=== PATIENT | female | born 2005 | race Caucasian/White ===

== ENCOUNTER 2023-02-19 12:10 | Emergency (ER) | payer MEDICAID | END 2023-02-19 14:55 | disposition home or self-care (01) | LOC: FB.ED 12:10 | DX: R07.89 Other chest pain (principal); I10 Essential (primary) hypertension; Z88.0 Allergy status to penicillin | CPT/HCPCS: 36415; 71045; 86140; 99285 ==

== ENCOUNTER 2023-02-20 21:37 | Emergency (ER) | payer MEDICAID ==
[2023-02-20] MEDS ORDERED: ALPRAZolam 0.5 MG Tab PO ONE (21:38)
[2023-02-20] MEDS: LORazepam 2 MG/ML SDV ONE (21:44)
[2023-02-20] MEDS: LORazepam 2 MG/ML SDV IM ONE (21:44)
[2023-02-20] MEDS ORDERED: LORazepam 2 MG/ML SDV IV ONE (21:45)
[2023-02-20 22:31] VITALS: BP 155/71; PULSE 87
== END 2023-02-20 22:52 | disposition home or self-care (01) ==
LOC: FB.ED 21:37
DX: R07.89 Other chest pain (principal); I10 Essential (primary) hypertension; Z79.899 Other long term (current) drug therapy; Z88.0 Allergy status to penicillin
CPT/HCPCS: 36415; 85379; 96372; 99283; 99284; A9270-GY; J2060

== ENCOUNTER 2023-04-08 02:24 | Emergency (ER) | payer MEDICAID ==
[2023-04-08] MEDS ORDERED: Ketorolac 30 MG/ML SDV IM ONE (02:48)
[2023-04-08] MEDS ORDERED: hydrOXYzine HCl 50 MG/ML SDV IM ONE (02:48)
== END 2023-04-08 03:20 | disposition home or self-care (01) ==
LOC: FB.ED 02:24
DX: M54.50 Low back pain, unspecified (principal); I10 Essential (primary) hypertension; Z79.899 Other long term (current) drug therapy; Z88.0 Allergy status to penicillin
CPT/HCPCS: 96372; 99283; J1885; J3410

== ENCOUNTER 2023-05-14 21:16 | Emergency (ER) | payer MEDICAID ==
[2023-05-14 21:33] LABS: HEMATOCRIT 38.2 % (34.2-48.2); MEAN CORPUSCULAR HEMOGLOBIN 28.5 pg (23.9-33.9); MEAN CORPUSCULAR HGB CONC 34.1 g/dL (31.9-34.8); MEAN CORPUSCULAR VOLUME 83.6 fL (76.7-100.5); MEAN PLATELET VOLUME 7.9 fL (7.1-12.4); PLATELET COUNT,PLT 364 x10(3)uL (151-488); RED BLOOD CELL COUNT 4.57 x10(6)uL (3.60-5.20); RED CELL DISTRIBUTION WIDTH 14.2 % (12.3-16.5); WHITE BLOOD CELL COUNT,WBC 6.1 x10-3/uL (3.0-10.3)
[2023-05-14 21:36] LABS: BLOOD UREA NITROGEN,BUN 15 mg/dL (7-18); BUN/CREATININE RATIO 18.8 (9-20); CALCIUM 8.9 mg/dL (8.2-10.1); CARBON DIOXIDE,CO2 26 mmol/L (21-32); CHLORIDE,CL 102 mmol/L (100-110); CREATININE 0.8 mg/dL (0.55-1.02); ESTIMATED GFR 109 mL/min (>60); GLUCOSE RANDOM 140 mg/dL (80-116); POTASSIUM,K 3.6 mmol/L (3.5-5.3); SODIUM,NA 139 mmol/L (135-145)
[2023-05-14 21:42] LABS: A/G RATIO 1.1; ALANINE AMINOTRANSFERASE,ALT 67 U/L (12-36); ALBUMIN 3.8 g/dL (3.2-4.5); ALKALINE PHOSPHATASE 98 IU/L (56-112); ASPARTATE AMNIOTRANSFERASE,AST 33 IU/L (5-25); BILIRUBIN TOTAL 0.5 mg/dL (0.1-1.2); PROTEIN TOTAL,TP 7.2 g/dL (6.0-8.0)
[2023-05-14] MEDS: Acetaminophen/oxyCODONE 325-5 MG Tab PO STA (21:43)
[2023-05-14] MEDS: Ketorolac 30 MG/ML SDV IVPUSH ONE (21:43)
[2023-05-14] MEDS: Sodium Chloride 0.9% 10 ML Syringe FLUSH PRN (21:44)
[2023-05-14 21:52] LABS: BAND PERCENT MAN 1 % (0-6); LYMPHOCYTES PERCENT MAN 45 % (13-37); SEG NEUTROPHILS PERCENT MAN 46 % (46-82)
[2023-05-14 21:53] LABS: INR 0.96 (1.00-1.24); MONOCYTES PERCENT MAN 8 % (4-12); PTT,PARTIAL THROMBOPLSTIN TIME 27.5 SECONDS (24.4-33.2)
== END 2023-05-14 23:00 | disposition home or self-care (01) ==
LOC: FB.ED 21:16
DX: S09.90XA Unspecified injury of head, initial encounter (principal); R55 Syncope and collapse; F44.4 Conversion disorder with motor symptom or deficit; I10 Essential (primary) hypertension; Z88.0 Allergy status to penicillin; W22.8XXA Striking against or struck by other objects, initial encounter
CPT/HCPCS: 36415; 70450; 80053; 85025; 85379; 85610; 85730; 93005; 96374; 99284; A9270; J1885; J3490

== ENCOUNTER 2023-06-15 23:29 | Emergency (ER) | payer MEDICAID ==
[2023-06-16] MEDS: hydrOXYzine HCl 50 MG/ML SDV IM ONE (00:21)
[2023-06-16] MEDS: hydrOXYzine HCl 50 MG/ML SDV ONE (00:40)
== END 2023-06-16 00:51 | disposition home or self-care (01) ==
LOC: FB.ED 23:29
DX: F41.9 Anxiety disorder, unspecified (principal); R07.89 Other chest pain; E66.9 Obesity, unspecified; I10 Essential (primary) hypertension; Z88.0 Allergy status to penicillin; Z79.899 Other long term (current) drug therapy
CPT/HCPCS: 96372; 99284; J3410; 99283

== ENCOUNTER 2023-12-07 12:54 | Emergency (ER) | payer MEDICAID ==
[2023-12-07 13:44] LABS: BLOOD UREA NITROGEN,BUN 11 mg/dL (7-18); CALCIUM 9.1 mg/dL (8.2-10.1); CARBON DIOXIDE,CO2 25 mmol/L (21-32); CHLORIDE,CL 104 mmol/L (100-110); CREATININE 1.1 mg/dL (0.55-1.02); EST CRCL DRUG DOSING (CG) 82.98 mL/min; ESTIMATED GFR 74 mL/min (>60); GLUCOSE RANDOM 97 mg/dL (80-116); POTASSIUM,K 3.8 mmol/L (3.5-5.3); SODIUM,NA 140 mmol/L (135-145)
[2023-12-07 13:47] LABS: BASOPHILS ABSOLUTE AUTO 0.1 x10-3/uL (0.0-0.1); BASOPHILS PERCENT AUTO 1.4 % (0.2-1.5); EOSINOPHILS ABSOLUTE AUTO 0.1 x10-3/uL (0.0-0.8); EOSINOPHILS PERCENT AUTO 1.5 % (0.6-8.1); HEMATOCRIT 40.7 % (34.2-48.2); HEMOGLOBIN 13.5 g/dL (11.4-15.5); LYMPHOCYTES ABSOLUTE AUTO 2.4 x10-3/uL (1.0-4.4); LYMPHOCYTES PERCENT AUTO 25.1 % (18.4-52.1); MEAN CORPUSCULAR HEMOGLOBIN 27.3 pg (23.9-33.9); MEAN CORPUSCULAR HGB CONC 33.2 g/dL (31.9-34.8); MEAN CORPUSCULAR VOLUME 82.1 fL (76.7-100.5); MEAN PLATELET VOLUME 8.4 fL (7.1-12.4); MONOCYTES ABSOLUTE AUTO 0.7 x10-3/uL (0.3-1.0); MONOCYTES PERCENT AUTO 7.2 % (4.4-15.7); NEUTROPHILS ABSOLUTE AUTO 6.3 x10-3/uL (1.5-6.3); NEUTROPHILS PERCENT AUTO 64.8 % (30.8-76.2); PLATELET COUNT,PLT 493 x10(3)uL (151-488); RED BLOOD CELL COUNT 4.96 x10(6)uL (3.60-5.20); RED CELL DISTRIBUTION WIDTH 15.1 % (12.3-16.5); WHITE BLOOD CELL COUNT,WBC 9.7 x10-3/uL (3.0-10.3)
[2023-12-07 13:58] LABS: A/G RATIO 1.1; ALANINE AMINOTRANSFERASE,ALT 91 U/L (12-36); ALBUMIN 3.8 g/dL (3.2-4.5); ALKALINE PHOSPHATASE 104 IU/L (56-112); ASPARTATE AMNIOTRANSFERASE,AST 38 IU/L (5-25); BILIRUBIN TOTAL 0.5 mg/dL (0.1-1.2); PROTEIN TOTAL,TP 7.3 g/dL (6.0-8.0)
[2023-12-07 14:02] LABS: TSH ULTRASENSITIVE 3.21 IU/mL (0.52-4.13)
[2023-12-07 14:07] LABS: ETHANOL BLOOD MEDICAL < 0.03 % (<0.03)
[2023-12-07 14:11] LABS: ACETAMINOPHEN < 2 ug/mL (<2)
[2023-12-07 14:12] LABS: SALICYLATE < 2.8 mg/dL (<2.8)
[2023-12-07 14:15] LABS: AMPHETAMINES SCREEN, URINE NEGATIVE (NEGATIVE); BARBITURATE SCREEN,URINE NEGATIVE (NEGATIVE); BENZODIAZEPINES SCREEN,URINE NEGATIVE (NEGATIVE); BUPRENORPHINE SCREEN,URINE NEGATIVE (NEGATIVE); METHADONE SCREEN, URINE NEGATIVE (NEGATIVE); METHAMPHETAMINE SCREEN, URINE NEGATIVE (NEGATIVE); OXYCODONE SCREEN,URINE NEGATIVE (NEGATIVE); THC SCREEN,URINE NEGATIVE (NEGATIVE)
== END 2023-12-07 15:00 | disposition home or self-care (01) ==
LOC: FB.ED 12:54
DX: F32.A Depression, unspecified (principal); F41.9 Anxiety disorder, unspecified; I10 Essential (primary) hypertension; Z88.8 Allergy status to other drugs, medicaments and biological substances; Z88.0 Allergy status to penicillin; Z79.899 Other long term (current) drug therapy
CPT/HCPCS: 36415; 80053; 80143; 80179; 80307; 81025; 84443; 85025; 99284

== ENCOUNTER 2024-02-02 19:42 | Emergency (ER) | payer OTHER, MEDICAID | END 2024-02-02 21:08 | disposition home or self-care (01) | LOC: FB.ED 19:42 | DX: S16.1XXA Strain of muscle, fascia and tendon at neck level, initial encounter (principal); S00.93XA Contusion of unspecified part of head, initial encounter; S20.219A Contusion of unspecified front wall of thorax, initial encounter; I10 Essential (primary) hypertension; E66.9 Obesity, unspecified; Z88.0 Allergy status to penicillin; Z88.8 Allergy status to other drugs, medicaments and biological substances; Z79.899 Other long term (current) drug therapy; V89.2XXA Person injured in unspecified motor-vehicle accident, traffic, initial encounter | CPT/HCPCS: 70450; 71045; 72125; 93005; 99285 ==

== ENCOUNTER 2024-07-06 21:19 | Emergency (ER) | payer MEDICAID ==
[2024-07-06] MEDS ORDERED: Sodium Chloride 0.9% 10 ML Syringe FLUSH PRN (21:31)
[2024-07-06] MEDS ORDERED: Ondansetron 4 MG/2 ML SDV IVPUSH ONE (21:31)
[2024-07-06 21:52] LABS: BASOPHILS PERCENT AUTO 0.4 % (0.2-1.5); EOSINOPHILS PERCENT AUTO 0.2 % (0.6-8.1); HEMATOCRIT 40.3 % (34.2-48.2); HEMOGLOBIN 13.9 g/dL (11.4-15.5); LYMPHOCYTES ABSOLUTE AUTO 0.8 x10-3/uL (1.0-4.4); LYMPHOCYTES PERCENT AUTO 7.9 % (18.4-52.1); MEAN CORPUSCULAR HEMOGLOBIN 27.6 pg (23.9-33.9); MEAN CORPUSCULAR HGB CONC 34.4 g/dL (31.9-34.8); MEAN CORPUSCULAR VOLUME 80.1 fL (76.7-100.5); MEAN PLATELET VOLUME 8.2 fL (7.1-12.4); MONOCYTES ABSOLUTE AUTO 0.8 x10-3/uL (0.3-1.0); MONOCYTES PERCENT AUTO 7.6 % (4.4-15.7); NEUTROPHILS ABSOLUTE AUTO 8.6 x10-3/uL (1.5-6.3); NEUTROPHILS PERCENT AUTO 83.9 % (30.8-76.2); PLATELET COUNT,PLT 442 x10(3)uL (151-488); RED BLOOD CELL COUNT 5.03 x10(6)uL (3.60-5.20); RED CELL DISTRIBUTION WIDTH 15.3 % (12.3-16.5); WHITE BLOOD CELL COUNT,WBC 10.2 x10-3/uL (3.0-10.3)
[2024-07-06] MEDS: Ketorolac 30 MG/ML SDV IVPUSH ONE (21:52)
[2024-07-06] MEDS: Sodium Chloride 0.9% 1,000 ML IV SCH (21:52)
[2024-07-06] MEDS: Pantoprazole 40 MG Vial IVPUSH ONE (21:52)
[2024-07-06] MEDS: Metoclopramide 10 MG/2 ML SDV IVPUSH ONE (21:54)
[2024-07-06 21:55] LABS: BLOOD UREA NITROGEN,BUN 12 mg/dL (7-18); CALCIUM 9.2 mg/dL (8.6-10.2); CARBON DIOXIDE,CO2 22 mmol/L (21-32); CHLORIDE,CL 104 mmol/L (100-110); ESTIMATED GFR 83 mL/min (>60); GLUCOSE RANDOM 98 mg/dL (80-116); POTASSIUM,K 3.5 mmol/L (3.5-5.3); SODIUM,NA 141 mmol/L (135-145)
[2024-07-06 22:01] LABS: A/G RATIO 1.1; ALANINE AMINOTRANSFERASE,ALT 84 U/L (12-36); ALBUMIN 4.2 g/dL (3.5-5.2); ALKALINE PHOSPHATASE 84 IU/L (56-112); ASPARTATE AMNIOTRANSFERASE,AST 41 IU/L (5-25); BILIRUBIN TOTAL 0.5 mg/dL (0.1-1.3); PROTEIN TOTAL,TP 7.9 g/dL (6.0-8.0)
[2024-07-06 22:09] LABS: C-REACTIVE PROTEIN 1.17 mg/dL (<0.50); LIPASE 28 U/L (16-77)
[2024-07-06 22:14] LABS: HCG QUANTITATIVE < 5 mIU/mL (<5)
== END 2024-07-06 22:35 | disposition home or self-care (01) ==
LOC: FB.ED 21:19
DX: K52.9 Noninfective gastroenteritis and colitis, unspecified (principal); I10 Essential (primary) hypertension; E66.9 Obesity, unspecified; Z68.27 Body mass index [BMI] 27.0-27.9, adult; Z88.0 Allergy status to penicillin; Z88.5 Allergy status to narcotic agent
CPT/HCPCS: 36415; 80053; 83605; 83690; 84702; 85025; 86140; 96361; 96374; 96375; 99283; 99284; J1885; J2470; J2765; J7030